=== PATIENT | female | born 1980 ===

== ENCOUNTER 2018-05-30 20:19 | Emergency (ER) | payer OTHER ==
[2018-05-30] MEDS ORDERED: Sodium Chloride 0.9% 1,000 ML IV STA (20:48)
--- NOTE | 2018-05-30 20:53 | ED PDOC ---
HPI: Abdomen Time Seen by Provider: 05/30/18 20:30 Chief Complaint (Nursing): Abdominal Pain Chief Complaint (Provider): abdominal pain History Per: Patient History/Exam Limitations: no limitations Onset/Duration Of Symptoms: Days (2), Waxing/Waning Current Symptoms Are (Timing): Still Present Location Of Pain/Discomfort: LUQ, LLQ Quality Of Discomfort: "Pain", Gas Additional Complaint(s): 37 y/o female presents for evaluation of intermittent left-sided abdominal pain x 2 days, worse tonight. Associated abdominal bloating, and vomiting x 1, prior to arrival. Denies fever, cough, chest pain, shortness of breath, palpitations, changes in bowel movements, urinary symptoms, vaginal bleeding/discharge. No medication taken for relief thus far Past Medical History Reviewed: Historical Data, Nursing Documentation, Vital Signs Vital Signs: Last Vital Signs Temp 98.4 F 05/30/18 20:24 Pulse 80 05/30/18 20:24 Resp 16 05/30/18 20:24 BP 110/67 05/30/18 20:24 Pulse Ox 100 05/30/18 20:24 - Medical History PMH: No Chronic Diseases - Surgical History Other surgeries: partial hysterectomy - Family History Family History: States: No Known Family Hx - Home Medications Home Medications: Ambulatory Orders Medication Instructions Recorded Ciprofloxacin HCl [Cipro] 500 mg PO BID #19 tab 05/31/18 Metronidazole [Flagyl] 500 mg PO TID #29 tablet 05/31/18 - Allergies Allergies/Adverse Reactions: Allergies Allergy/AdvReac Type Severity Reaction Status Date / Time No Known Allergies Allergy Verified 05/30/18 20:25 Review of Systems ROS Statement: Except As Marked, All Systems Reviewed And Found Negative Gastrointestinal: Positive for: Vomiting, Abdominal Pain Physical Exam - Reviewed Nursing Documentation Reviewed: Yes Vital Signs Reviewed: Yes - Physical Exam Appears: Positive for: Well, Non-toxic, Uncomfortable Head Exam: Positive for: ATRAUMATIC, NORMAL INSPECTION, NORMOCEPHALIC Skin: Positive for: Normal Color Eye Exam: Positive for: Normal appearance ENT: Positive for: Normal ENT Inspection Cardiovascular/Chest: Positive for: Regular Rate, Rhythm Respiratory: Positive for: Normal Breath Sounds Gastrointestinal/Abdominal: Positive for: Bowel Sounds, Soft, Tenderness (llq, luq), Distended Back: Positive for: Normal Inspection Extremity: Positive for: Normal ROM Neurologic/Psych: Positive for: Alert, Oriented (x3) - Laboratory Results Result Diagrams: 05/30/18 21:22 05/30/18 21:22 - ECG O2 Sat by Pulse Oximetry: 100 - Progress ED Course And Treament: labs, u/s, IV toradol USArad impression: hysterectomy. Normal ovaries with normal flow maintained. No free fluid Will order CT abd/pelvis for further eval USArad impression: Diffuse thickening of the sigmoid colon with mild surrounding inflammatory fat stranding. Most likely uncomplicated cystitis. Minimal diffuse thickening of the bladder. Underdistention versus mild cystitis. Please correlate with urinalysis Minimal diffuse thickening of the gallbladder. Please correlate with focal tenderness in the right upper quadrant and possibly ultrasound exam On re-eval, patient states she is feeling better. Patient educated on findings, discharged with rx Cipro (dose given in ED), flagyl (dose given in ED) Advised follow up PMD/GI Return precautions given Disposition - Clinical Impression Clinical Impression: Colitis Counseled Patient/Family Regarding: Studies Performed, Diagnosis, Need For Followup, Rx Given - Disposition Referrals: [facility] [Outside] Disposition: Routine/Home Disposition Time: 02:13 Condition: IMPROVED Prescriptions: Ciprofloxacin HCl [Cipro] 500 mg PO BID #19 tab Metronidazole [Flagyl] 500 mg PO TID #29 tablet Instructions: Acute Abdomen (Belly Pain) Print Language: CITIZEN OF [place]
[2018-05-30 21:25] LABS: BASO # 0.1 K/uL (0.0-0.2); BASO % 0.7 % (0.0-2.0); EOS # 0.4 K/uL (0.0-0.7); EOS % 4.6 % (0.0-4.0); HEMOGLOBIN 12.2 g/dL (12.0-16.0); LYMPH # 2.6 K/uL (1.0-4.3); LYMPH % 32.1 % (20.0-40.0); MEAN CELL VOLUME 90.6 fl (81.0-99.0); MEAN CORPUSCULAR HEMOGLOBIN 31.4 pg (27.0-31.0); MEAN CORPUSCULAR HGB CONC 34.6 g/dL (33.0-37.0); MEAN PLATELET VOLUME 7.6 fl (7.2-11.7); MONO # 0.6 K/uL (0.0-0.8); NEUT # 4.4 K/uL (1.8-7.0); NEUT % 54.6 % (50.0-75.0); RBC 3.89 Mil/uL (3.80-5.20); RED CELL DISTRIBUTION WIDTH 12.9 % (11.5-14.5)
[2018-05-30 21:28] LABS: SQUAMOUS EPITHIAL 1 /hpf (0-5); URINE BACTERIA OCC (<OCC); URINE BILIRUBIN NEGATIVE (NEGATIVE); URINE BLOOD NEGATIVE (NEGATIVE); URINE CLARITY SLIGHTY-CLOUDY (Clear); URINE COLOR YELLOW (YELLOW); URINE GLUCOSE (UA) NEG (Normal); URINE LEUKOCYTE ESTERASE NEG Leu/uL (Negative); URINE PROTEIN NEGATIVE (NEGATIVE); URINE UROBILINOGEN 0.2-1.0 mg/dL (0.2-1.0)
[2018-05-30 21:38] LABS: ALB/GLOB RATIO 1.4 (1.0-2.1); ALT/SGPT 37 U/L (9-52); AST/SGOT 27 U/L (14-36); BLOOD UREA NITROGEN 14 mg/dl (7-17); GFR NON-AFRICAN AMERICAN > 60
[2018-05-30 23:27] VITALS: RESP 18
[2018-05-30 23:50] VITALS: O2SAT 100
[2018-05-31] MEDS ORDERED: Iohexol 300 100 ML IJ ONE (00:36)
[2018-05-31] MEDS ORDERED: Sodium Chloride 0.9% 50 ML IV ONE (00:36)
[2018-05-31 02:28] VITALS: BP 103/62; PULSE 57; TEMP 97.8
--- NOTE | 2018-05-31 11:10 | CT ---
Date of service: 05/31/2018 PROCEDURE: CT Abdomen and Pelvis with contrast HISTORY: left abdominal pain COMPARISON: None. TECHNIQUE: Contrast dose: 90 mL Omnipaque 300 Radiation dose: Total exam DLP = 297 mGy-cm. This CT exam was performed using one or more of the following dose reduction techniques: Automated exposure control, adjustment of the mA and/or kV according to patient size, and/or use of iterative reconstruction technique. FINDINGS: LOWER THORAX: Unremarkable. LIVER: Hepatic steatosis. No gross lesion or ductal dilatation. GALLBLADDER AND BILE DUCTS: Unremarkable. PANCREAS: Unremarkable. No gross lesion or ductal dilatation. SPLEEN: Unremarkable. ADRENALS: Unremarkable. No mass. KIDNEYS AND URETERS: Unremarkable. No hydronephrosis. No solid mass. VASCULATURE: Unremarkable. No aortic aneurysm. BOWEL: Unremarkable. No obstruction. No gross mural thickening. APPENDIX: Normal appendix. PERITONEUM: Unremarkable. No free fluid. No free air. LYMPH NODES: Unremarkable. No enlarged lymph nodes. BLADDER: Underdistended, limiting evaluation. REPRODUCTIVE: Unremarkable. BONES: No acute fracture. OTHER FINDINGS: None. IMPRESSION: No acute abdominal pelvic pathology.
--- NOTE | 2018-05-31 12:12 | US ---
Date of service: 05/30/2018 HISTORY: left-sided pain, h/o partial hysterectomy COMPARISON: None available. TECHNIQUE: Grayscale, color Doppler and spectral evaluation the pelvis performed transvaginally. FINDINGS: UTERUS: Prior hysterectomy RIGHT OVARY: Measures 2.3 x 1.5 x 1.9 cm. No solid mass. Normal flow. LEFT OVARY: Measures 2.1 x 1.0 x 2.0 cm. No solid mass. Normal flow. FREE FLUID: No significant free fluid noted. OTHER FINDINGS: None. IMPRESSION: Prior hysterectomy. Otherwise, unremarkable pelvic ultrasound.
== END 2018-05-31 02:32 | disposition home or self-care (01) ==
LOC: H.ER 20:19
DX: K52.9 Noninfective gastroenteritis and colitis, unspecified (principal)
CPT/HCPCS: 74177; 76830; 80053; 81003; 81025; 85025; 87086; 99284; J1885; J2405; J7030; Q9967